=== PATIENT | female | born 1975 | race Caucasian/White ===

== ENCOUNTER 2021-04-16 23:25 | Emergency (ER) | payer OTHER ==
[~2021-04-16] VITALS: Ht 157.5 cm; Wt 56.7 kg
--- NOTE | 2021-04-16 23:25 | NUR ---
PT SAUL HEREDIA, PREBOOK. TAKEN TO CHAIR
[2021-04-16 23:29] VITALS: BP 105/82
--- NOTE | 2021-04-16 23:34 | NUR ---
PT BIB [facility] FOR A LAC ON RIGHT THUMB S/P FALL. NO ACTIVE BLEEDING AT THIS TIME. NO PMH, NO RX
--- NOTE | 2021-04-16 23:42 | NUR ---
Dr. Tran examining patient.
[2021-04-16 23:56] VITALS: BP 105/82
--- NOTE | 2021-04-16 23:57 | NUR ---
PATIENT [facility] DEPT. PATIENT EXAMINED BY DR. PULIDO. PATIENT MEDICALLY CLEARED AND RELEASED IN CUSTODY IN STABLE CONDITION. ORIGINAL PRE-BOOK FORM GIVEN TO OFFICER ADALID.
== END 2021-04-16 23:57 ==
LOC: MED 23:25
DX: S61.011A Laceration without foreign body of right thumb without damage to nail, initial encounter (principal); Z02.89 Encounter for other administrative examinations; W19.XXXA Unspecified fall, initial encounter; Y93.89 Activity, other specified; Y92.89 Other specified places as the place of occurrence of the external cause; Y99.8 Other external cause status
CPT/HCPCS: 12001; 99283